=== PATIENT | male | born 2000 | race Caucasian/White ===

== ENCOUNTER 2018-01-04 12:12 | Emergency (ER) | payer OTHER ==
[2018-01-04] MEDS ORDERED: FENTANYL CITRATE INJ/PF 100 MCG/2 ML AMPUL IV ONE (12:23)
[2018-01-04] MEDS ORDERED: ONDANSETRON HCL INJ/PF 4 MG/2 ML SDV IV ONE (12:23)
[2018-01-04] MEDS ORDERED: HYDROMORPHONE HCL INJ/PF 2 MG/ML AMPULE IV ONE ×2 (12:24→13:31)
--- NOTE | 2018-01-04 12:26 | ER Document Report ---
ED Extremity Problem, Upper - General Chief Complaint: Arm Injury Stated Complaint: ARM INJURY Time Seen by Provider: 01/04/18 12:22 Mode of Arrival: Ambulatory Information source: Patient Notes: 17 yo fell going down a ladder and used left arm to catch self, deformed without skin injury. Obvious fracture ulna and radius 45 minutes prior to arrival. TRAVEL OUTSIDE OF THE [place] IN LAST 30 DAYS: No - Related Data Allergies/Adverse Reactions: No Known Allergies Allergy (Verified 01/04/18 15:52) Past Medical History - General Information source: Patient - Social History Smoking Status: Unknown if Ever Smoked Lives with: Family Family History: Reviewed & Not Pertinent - Medical History Medical History: Negative Surgical Hx: Negative Review of Systems - Review of Systems Constitutional: No symptoms reported EENT: No symptoms reported Cardiovascular: No symptoms reported Respiratory: No symptoms reported Gastrointestinal: No symptoms reported Genitourinary: No symptoms reported Male Genitourinary: No symptoms reported Musculoskeletal: See HPI Skin: No symptoms reported Hematologic/Lymphatic: No symptoms reported Neurological/Psychological: No symptoms reported Physical Exam - Vital signs Vitals: Temp Pulse Resp BP Pulse Ox 97.6 F 54 L 21 120/70 100 01/04/18 12:25 01/04/18 12:25 01/04/18 12:25 01/04/18 12:25 01/04/18 12:25 Interpretation: Normal - General General appearance: Appears well, Alert, Other - pale In distress: None - HEENT Head: Normocephalic, Atraumatic Eyes: Normal Pupils: PERRL Neck: Supple - Respiratory Respiratory status: No respiratory distress Chest status: Nontender Breath sounds: Normal Chest palpation: Normal - Cardiovascular Rhythm: Regular Heart sounds: Normal auscultation Murmur: No - Back Back: Normal, Nontender - Extremities General upper extremity: Tender - lower 1/3 left forearm with deformity, N/V intact distally, 2+ radial and ulnar pulse, Edema, Normal color, Normal temperature General lower extremity: Normal inspection, Nontender, Normal color, Normal ROM , Normal temperature, Normal weight bearing. No: Jovani's sign - Neurological Neuro grossly intact: Yes Cognition: Normal Orientation: AAOx4 Danielle Coma Scale Eye Opening: Spontaneous Watkins Coma Scale Verbal: Oriented Danielle Coma Scale Motor: Obeys Commands Watkins Coma Scale Total: 15 Speech: Normal Motor strength normal: LUE, RUE, LLE, RLE Sensory: Normal - Psychological Associated symptoms: Normal affect, Normal mood - Skin Skin Temperature: Warm Skin Moisture: Dry Skin Color: Normal Course - Re-evaluation Re-evalutation: 01/04/18 13:[address] Thorpe over the phone who was viewed the pictures and states that he needs to have surgery tomorrow if I send him to the office in a sugar tong splint with pain medication he will take him to the OR tomorrow. - Vital Signs Vital signs: Temp Pulse Resp BP Pulse Ox 97.8 F 54 L 18 113/60 99 01/04/18 14:18 01/04/18 14:18 01/04/18 14:18 01/04/18 14:18 01/04/18 14:18 Procedures - Immobilization Left Arm Time completed: 13:55 Pre-Proc Neuro Vasc Exam: Normal Immobilizer type: Sugar tong, Sling Performed by: PCT Post-Proc Neuro Vasc Exam: Normal, Unchanged from pre-exam Alignment checked and good: Yes Discharge - Discharge Clinical Impression: Transverse fx radius/ulna overlap Condition: Good Disposition: HOME, SELF-CARE Instructions: Elevate the Injury ([facility]), Fractured Radius and Ulna ([facility]), Oral Narcotic Medication ([facility]), Splint Precautions ([facility]), Temporary Sling ([facility]), Temporary Splint ([facility]) Additional Instructions: Go to Dr. Thorpe's office now and he will prepare you for the surgery tomorrow Prescriptions: Hydrocodone Bit/Acetaminophen [Hydrocodon-Acetaminophen 5-325] 1 - 2 each PO Q4HP PRN #20 tablet PRN Reason: Referrals: ANNE THORPE MD [ACTIVE STAFF] - 01/04/18 (go now)
[2018-01-04] MEDS ORDERED: RINGERS SOLUTION,LACTATED 1,000 ML IV PRN (13:31)
--- NOTE | 2018-01-04 13:32 | RADIOLOGY REPORT (SQ) ---
EXAM DESCRIPTION: FOREARM LEFT COMPLETED DATE/TIME: 01/04/2018 1:20 pm REASON FOR STUDY: injury COMPARISON: None. NUMBER OF VIEWS: Two views. TECHNIQUE: Two radiographic images acquired of the left forearm, including elbow and wrist in at [address] one projection. LIMITATIONS: None. FINDINGS: MINERALIZATION: Normal. BONES: There are transverse fractures of the distal radius and ulna. There is an ulnar styloid fract ure as well. Fracture fragments overlie the proximal radius and ulna. SOFT TISSUES: No obvious swelling or foreign body. OTHER: No other significant finding. IMPRESSION: Transverse fractures the distal radius and ulna. There is an ulnar styloid fracture as well. TECHNICAL DOCUMENTATION: JOB ID: [id number] [employer]- All Rights Reserved Reading location - IP/workstation name: [email or web address]
[2018-01-04 14:22] VITALS: BP 113/60
== END 2018-01-04 14:22 | disposition home or self-care (01) ==
LOC: ER 12:12
DX: S52.592A Other fractures of lower end of left radius, initial encounter for closed fracture (principal); S52.692A Other fracture of lower end of left ulna, initial encounter for closed fracture; S52.612A Displaced fracture of left ulna styloid process, initial encounter for closed fracture; W11.XXXA Fall on and from ladder, initial encounter
CPT/HCPCS: 96376; 99283; 96374; 96375; 73090; 29125; J1170; J2405; J7120

== ENCOUNTER 2018-01-05 06:29 | Day surgery (SDC) | payer OTHER ==
[~2018-01-05 06:29] MED LIST: CEFAZOLIN 2 GM/D5W RTU 2 GM/50 ML RTUPB IV ONE; CEFAZOLIN 2 GM/D5W RTU 2 GM/50 ML RTUPB IV PRN
[2018-01-05 07:12] LABS: ABSOLUTE BASOPHILS # (AUTO) 0.1 10^3/uL (0.0-0.2); ABSOLUTE EOSINOPHILS # (AUTO) 0.3 10^3/uL (0.0-0.6); ABSOLUTE LYMPHOCYTES (AUTO) 2.3 10^3/uL (0.5-4.7); ABSOLUTE MONOCYTES (AUTO) 0.7 10^3/uL (0.1-1.4); ABSOLUTE NEUT (AUTO) 6.2 10^3/uL (1.7-8.2); BASOPHILS % (AUTO) 0.8 % (0-2); EOSINOPHILS % (AUTO) 3.2 % (0-6); HEMATOCRIT 46.1 % (37.9-51.0); LYMPHOCYTES % (AUTO) 24.2 % (13-45); MEAN CORPUSCULAR HEMOGLOBIN 28.9 pg (27.0-33.4); MEAN CORPUSCULAR HGB CONC 34.8 g/dL (32.0-36.0); MEAN CORPUSCULAR VOLUME 83 fl (80-97); MONOCYTES % (AUTO) 7.6 % (3-13); RED BLOOD COUNT 5.56 10^6/uL (4.35-5.55); RED CELL DISTRIBUTION WIDTH 13.3 % (11.5-14.0); SEGMENTED NEUTROPHILS % (AUTO) 64.2 % (42-78); TOTAL CELLS COUNTED % (AUTO) 100 %; WHITE BLOOD COUNT 9.6 10^3/uL (4.0-10.5)
[2018-01-05 07:19] LABS: ANION GAP 11 (5-19); BLOOD UREA NITROGEN 10 mg/dL (7-20); CALCIUM 9.4 mg/dL (8.4-10.2); CARBON DIOXIDE 26 mmol/L (22-30); CHLORIDE 104 mmol/L (98-107); GLUCOSE 92 mg/dL (75-110); SODIUM 141.2 mmol/L (137-145)
[2018-01-05 07:22] LABS: POTASSIUM 4.4 mmol/L (3.6-5.0)
[2018-01-05 07:39] LABS: PLATELET COUNT 206 10^3/uL (150-450)
[2018-01-05] MEDS ORDERED: BUPIVACAINE HCL 0.25% /EPINEPHRINE INJ/PF 30 ML SDV ONE (07:40)
[2018-01-05] MEDS ORDERED: HYDROMORPHONE HCL INJ/PF 2 MG/ML AMPULE ONE (08:29)
[2018-01-05] MEDS ORDERED: MIDAZOLAM 2 MG/2 ML INJ ONE (08:29)
[2018-01-05] MEDS ORDERED: ACETAMINOPHEN 1,000 MG/100 ML RTUPB IV ONE (08:30)
[2018-01-05] MEDS ORDERED: PROPOFOL INJ 200 MG/20 ML VIAL IV ONE (08:30)
[2018-01-05] MEDS ORDERED: METOCLOPRAMIDE HCL INJ/PF 10 MG/2 ML SDV ONE (09:02)
[2018-01-05] MEDS ORDERED: ONDANSETRON HCL INJ/PF 4 MG/2 ML SDV ONE (09:02)
[2018-01-05] MEDS ORDERED: KETOROLAC TROMETHAMINE 60 MG/2 ML SDV ONE (09:02)
[2018-01-05] MEDS ORDERED: DEXAMETHASONE SOD PHOSPHATE INJ 4 MG/1 ML VIAL ONE (09:02)
[2018-01-05] MEDS ORDERED: SUCCINYLCHOLINE CHLORIDE INJ 200 MG/10 ML VIAL ONE (09:02)
[2018-01-05] MEDS ORDERED: FENTANYL CITRATE INJ/PF 100 MCG/2 ML AMPUL ONE (09:06)
[2018-01-05] MEDS ORDERED: MEPERIDINE HCL/PF INJ 25 MG/1 ML DISP.SYRIN IV PRN (09:11)
[2018-01-05] MEDS ORDERED: OXYCODONE-ACETAMINOPHEN 5-325 MG TABLET PO PRN ×2 (09:11)
[2018-01-05] MEDS ORDERED: DIPHENHYDRAMINE HCL 50 MG/ML VIAL IV PRN (09:11)
[2018-01-05] MEDS ORDERED: ONDANSETRON HCL INJ/PF 4 MG/2 ML SDV IV PRN (09:11)
[2018-01-05] MEDS ORDERED: FENTANYL CITRATE INJ/PF 100 MCG/2 ML AMPUL IV PRN ×3 (09:11)
[2018-01-05] MEDS ORDERED: PROMETHAZINE HCL INJ 25 MG/1 ML VIAL IV PRN ×2 (09:11)
--- NOTE | 2018-01-05 09:59 | Discharge Summary ---
Discharge Summary (SDC) - Discharge Final Diagnosis: Left both bone forearm fracture Date of Surgery: 01/05/18 Discharge Date: 01/05/18 Condition: Good Treatment or Instructions: Keep left upper extremity elevated Prescriptions: Oxycodone HCl 5 mg PO Q6 PRN #60 tablet PRN Reason: Discharge Diet: As Tolerated, Regular Respiratory Treatments at Home: Deep Breathing/Coughing Discharge Activity: Balance Activity w/Rest, No tub bath Home Care Assistance: None Needed Report the Following to Your Physician Immediately: Shortness of Breath, Fever over 101 Degrees, Drainage-Foul Smelling
--- NOTE | 2018-01-05 10:01 | Operative Report ---
Operative Report DATE OF SURGERY: 01/05/18 PREOPERATIVE DIAGNOSIS: Left both bone forearm fracture OPERATION: Open reduction internal fixation left both bone forearm fracture SURGEON: ANNE THORPE ANESTHESIA: GA ESTIMATED BLOOD LOSS: Minimal PROCEDURE: With the patient supine and operative table left upper extremity was prepped and draped in sterile fashion. The limb is elevated for exsanguination tourniquet inflated 250 torr. A longitudinal incision was made over the ulnar border of the distal ulnar and sharp dissection was used to expose the underlying fracture. Periosteum was elevated. The fracture was reduced under direct visualization. A 7-hole Wilder 3.5 compression plate is applied to the ulna and secured with 3 screws proximally and 3 screws distally. Fracture reduction hardware placement checked fluoroscopically and felt to be adequate. Next a longitudinal issues incisions made over the dorsal distal radius and the underlying fracture is visualized. Its reduced under direct visualization. A 6 -hole [place] titanium plate is applied with 3 screws proximally and 3 screws distally. The fracture reduction hardware placement checked fluoroscopically and felt to be adequate. The tourniquet is deflated. Hemostasis obtained with electrocautery. The wound is irrigated with bulb lavage. A septic closed in layers with interrupted Vicryl followed by brenda. A sterile compressive dressing was applied and the patient's return to PACU in satisfactory condition
[2018-01-05] MEDS ORDERED: OXYCODONE HCL IR 5 MG TABLET PO PRN (10:11)
[2018-01-05] MEDS ORDERED: ONDANSETRON 4 MG TAB.RAPDIS SL PRN (10:12)
--- NOTE | 2018-01-05 10:53 | RADIOLOGY REPORT (SQ) ---
EXAM DESCRIPTION: NO CHG FLUORO; FOREARM LEFT COMPLETED DATE/TIME: 01/05/2018 10:13 am REASON FOR STUDY: ORIF LEFT FOREARM ASST WITH FLUORO IN OR S52.92XA UNSP FRACTURE OF LEFT FOREARM, INIT FOR CLOS FX COMPARISON: None. FLUOROSCOPY TIME: 0.1 minute 5 images saved to PACS. TECHNIQUE: Intra-operative images acquired during surgical procedure to evaluate progress. NUMBER OF IMAGES: 5 LIMITATIONS: None. FINDINGS: Selected images from plate and screw fixation of radial and ulnar fractures. Alignment is anatomic. IMPRESSION: IMAGE(S) OBTAINED DURING PROCEDURE. COMMENT: Quality ID [id number]: Final reports for procedures using fluoroscopy that document radiation exp osure indices, or exposure time and number of fluorographic images (if radiation exposure indices are not available) Please consult full operative report of the attending physician for description of the procedure. TECHNICAL DOCUMENTATION: JOB ID: [id number] [employer]- All Rights Reserved Reading location - IP/workstation name: [email or web address]
--- NOTE | 2018-01-05 10:53 | RADIOLOGY REPORT (SQ) ---
EXAM DESCRIPTION: NO CHG FLUORO; FOREARM LEFT COMPLETED DATE/TIME: 01/05/2018 10:13 am REASON FOR STUDY: ORIF LEFT FOREARM ASST WITH FLUORO IN OR S52.92XA UNSP FRACTURE OF LEFT FOREARM, INIT FOR CLOS FX COMPARISON: None. FLUOROSCOPY TIME: 0.1 minute 5 images saved to PACS. TECHNIQUE: Intra-operative images acquired during surgical procedure to evaluate progress. NUMBER OF IMAGES: 5 LIMITATIONS: None. FINDINGS: Selected images from plate and screw fixation of radial and ulnar fractures. Alignment is anatomic. IMPRESSION: IMAGE(S) OBTAINED DURING PROCEDURE. COMMENT: Quality ID [id number]: Final reports for procedures using fluoroscopy that document radiation exp osure indices, or exposure time and number of fluorographic images (if radiation exposure indices are not available) Please consult full operative report of the attending physician for description of the procedure. TECHNICAL DOCUMENTATION: JOB ID: [id number] [employer]- All Rights Reserved Reading location - IP/workstation name: [email or web address]
[2018-01-05] MEDS ORDERED: OXYCODONE HCL IR 5 MG TABLET ONE (10:56)
[2018-01-05 12:38] VITALS: BP 134/83
== END 2018-01-05 12:20 | disposition home or self-care (01) ==
LOC: OROUT 06:29
PROVIDERS: ATTEND Orthopaedic Surgery
DX: S52.322A Displaced transverse fracture of shaft of left radius, initial encounter for closed fracture (principal); S52.202A Unspecified fracture of shaft of left ulna, initial encounter for closed fracture; W11.XXXA Fall on and from ladder, initial encounter; M25.532 Pain in left wrist
CPT/HCPCS: 36415; 85025; 80048; 73090; 25575; C1713 ×8; J2250; J3490; J1100; J1885; J3010; J2765; J1170; J0330; J2405; J2704; J0690; J0131; 01830